=== PATIENT | female | born 1940 | race Caucasian/White ===

== ENCOUNTER → 2016-12-05 | Day surgery (SDC) | payer MEDICARE ==
[~2016-12-05] MED LIST: GENTAMICIN SULFATE 80 MG/2 ML VIAL ONE; LACTATED RINGER'S 1000 ML INJ 1,000 ML ONE; ONDANSETRON HCL 4 MG/2 ML VIAL IV PUSH ONE; PROPOFOL 200 MG/20 ML AMP IV ONE; SODIUM CHLORIDE 0.9% SOLN 100 ML (PAB) BAG IV ONE
--- NOTE | 2016-12-05 13:56 | TN ---
cc: RIGOBERTO SCRUGGS M.D. DATE OF SURGERY: 12/05/2016 PREOPERATIVE DIAGNOSIS Right mid ureteral calculus (ICD-10 code N20.1). POSTOPERATIVE DIAGNOSIS Right mid ureteral calculus (ICD-10 code N20.1). PROCEDURE Cystourethroscopy with right ureteroscopic holmium laser lithotripsy and stone basket manipulation (CPT code 64333). INDICATIONS Ms. Sol is a 76-year-old woman with a 7 x 4 mm mid right ureteral calculus who has failed medical expulsive therapy and is requesting definitive treatment. FINDINGS Normal urethra and bladder. Ureteral orifices normal size, shape and position, effluxing clear urine bilaterally. The ureteroscopy shows a normal ureter up to the level of the mid ureter where there is induration and a 7 x 4 mm stone partially obstructing. Proximal to this is dilated and within normal limits. DETAILS OF PROCEDURE The procedure as well as the risks and benefits were explained to the patient. Informed consent was obtained. The patient was taken to the major operative theatre where she was placed in supine position. The patient was identified as well as the operative site. A universal timeout was performed in the standard fashion. At this time general anesthetic and prophylactic intravenous antibiotics were administered. After adequate anesthetic she was placed in the low dorsal lithotomy position, prepped and draped in the usual sterile fashion. At this time a 22.5 [place] obturator and sheath were placed into the bladder. The obturator was removed and a 30-degree cystoscope was placed. The bladder was systematically surveyed. Attention was directed to the right ureteral orifice where a 0.035 inch hybrid guidewire was then placed under direct vision and fluoroscopically guided up the ureter into the renal pelvis without difficulty. The cystoscope was removed leaving the guidewire in place which was attached to the drapes and then using a semi-rigid mini ureteroscope alongside the wire it was placed up the ureter to the mid ureter where the stone was identified. At this time using a 365 holmium laser fiber and a holmium laser setting of approximately 4 joules, the stone was fragmented into multiple small pieces. Some of the fragments were basketed and removed. The scope was placed one more time all the way up to the ureteropelvic junction. There were no additional stones, only some small calcific debris and some edema in the area where the stone had been lodged. No other abnormal findings. There was a mild amount of bleeding. At this time the ureteroscope was removed. The cystoscope was placed back into the bladder and the fragments were irrigated and sent for crystallographic analysis. Attention was directed to the ureteral orifice where there was clear urine effluxing. The decision was made not to leave the stent. The guidewire was removed. The bladder was decompressed, the cystoscope removed. The patient tolerated the procedure well, emerged from anesthetic without difficulty and transferred to Recovery in stable condition to be discharged home when criteria is met. There were no obvious complications. MD JESSICA Huber/NIKUNJ /1:32 PM /1:47 PM
== END | disposition home or self-care (01) ==
LOC: ESDC 09:32
PROVIDERS: ATTEND Urology
DX: N20.1 Calculus of ureter (principal)
CPT/HCPCS: 00918; 52353; 76000; C1769; J1580; J2405; J3010; J7120